=== PATIENT | female | born 1960 | race Caucasian/White ===

== ENCOUNTER 2021-01-20 19:13 | Inpatient (IN) | payer MEDICARE ==
[~2021-01-20 19:13] MED LIST: Iopamidol-370 76% 500 ML 1 ML ONE
[2021-01-20] MEDS ORDERED: Ondansetron ODT 4 MG TAB PO PRN (21:05)
[2021-01-20] MEDS ORDERED: Acetaminophen 325 MG TAB PO PRN (21:05)
[2021-01-20] MEDS ORDERED: hydrALAZINE 20 MG/ML VIAL SLOW IVP PRN (21:05)
[2021-01-20 22:40] LABS: Hemoglobin A1c 6.2 % (4.0-6.0)
[2021-01-21] MEDS ORDERED: HYDROcodone/Acetaminophen 5/325 mg Tablet PO PRN (04:33)
[2021-01-21 05:59] LABS: #Basophils 0.1 thou/uL (0.0-0.2); #Eosinphils 0.2 thou/uL (0.0-0.7); #Lymphocytes 2.1 thou/uL (1.20-3.40); #Monocytes 0.7 thou/uL (0.11-0.59); #Neutrophils 5.2 thou/uL (1.40-6.50); %Basophils 1.3 % (0.0-1.0); %Eosinophils 2.2 % (0.0-10.0); %Lymphocytes 25.4 % (21.0-51.0); %Monocytes 8.5 % (0.0-10.0); %Neutrophils 62.6 % (42.0-75.0); Hemoglobin 14.1 g/dL (12.0-16.0); Mean Corpuscular HGB CONC 34.6 g/dL (32.0-36.0); Mean Corpuscular Hemoglobin 32.2 pg (27.0-31.0); Mean Platelet Volume 6.9 fL (7.4-10.4); Platelet Count 361 thou/uL (130-400); RBC Distribution Width 11.6 % (11.5-14.5); Red Blood Cell (RBC) Count 4.37 mill/uL (4.20-5.40); White Blood Cell (WBC) Count 8.4 thou/uL (4.8-10.8)
[2021-01-21 06:27] LABS: Anion Gap 13 mmol/L (10-20); BUN (Urea Nitrogen) 9 mg/dL (9.8-20.1); Calc. Creatinine Clearance 0 mL/min (70-130); Calcium 9.8 mg/dL (7.8-10.44); Carbon Dioxide 25 mmol/L (23-31); Cardiac Risk 6.1 (Less than 4.5); Chloride 105 mmol/L (98-107); Cholesterol 262 mg/dl (< 200 Desired); Glucose 121 mg/dL (80-115); HDL Cholesterol 43 mg/dL (>60 Neg Risk); LDL Cholesterol, Calculated 180 mg/dL; Potassium 3.7 mmol/L (3.5-5.1); Sodium 139 mmol/L (136-145); Triglycerides 196 mg/dL (Less than 150)
[2021-01-21] MEDS ORDERED: Aspirin Chewable 81 MG TAB ONE (08:46)
[2021-01-21] MEDS ORDERED: Enoxaparin Sodium 40 MG/0.4 ML SYRINGE ONE (08:46)
[2021-01-21] MEDS ORDERED: Lisinopril 10 MG TAB ONE (08:46)
[2021-01-21] MEDS: Aspirin 81 mg Enteric Coated Tablet PO SCH (09:06)
[2021-01-21] MEDS: Enoxaparin Sodium 40 MG/0.4 ML SYRINGE SC SCH (09:07)
[2021-01-21] MEDS: Lisinopril 10 MG TAB PO SCH (09:07)
[2021-01-21] MEDS: Pregabalin 25 MG CAP PO SCH ×3 (09:08→21:25)
[2021-01-21 16:01] VITALS: BMI 28.6
[2021-01-21] MEDS ORDERED: Atorvastatin Calcium 40 MG TAB PO SCH (21:00)
[2021-01-22] MEDS ORDERED: Levothyroxine Sodium 50 MCG TAB PO SCH (06:00)
[2021-01-22] MEDS: Enoxaparin Sodium 40 MG/0.4 ML SYRINGE SC SCH (08:57)
[2021-01-22] MEDS: Aspirin 81 mg Enteric Coated Tablet PO SCH (08:58)
[2021-01-22] MEDS: Lisinopril 10 MG TAB PO SCH (08:58)
[2021-01-22] MEDS: Pregabalin 25 MG CAP PO SCH ×2 (08:59→16:31)
[2021-01-22 15:38] VITALS: BP 126/72; TEMP 97.7
[2021-01-22 19:22] LABS: EliA Thy New Method **** NEW METHOD ****; Thyroid Peroxidase IgG Ab Less than 4.0 IU/mL (<25 Normal)
== END 2021-01-22 18:10 | disposition home or self-care (01) | DRG 66 ==
LOC: ERS 19:13 → ERHOLD 20:56 → 2SE 01-21 15:49 → OBSVTOIN 01-21 16:40
PROVIDERS: ADMIT Family Medicine; ATTEND Family Medicine
DX: I63.40 Cerebral infarction due to embolism of unspecified cerebral artery (principal); R47.01 Aphasia; G62.9 Polyneuropathy, unspecified; I16.0 Hypertensive urgency; R26.2 Difficulty in walking, not elsewhere classified; I10 Essential (primary) hypertension; Z90.49 Acquired absence of other specified parts of digestive tract; Z83.3 Family history of diabetes mellitus; Z82.3 Family history of stroke; Z82.49 Family history of ischemic heart disease and other diseases of the circulatory system; Z87.891 Personal history of nicotine dependence; Z88.1 Allergy status to other antibiotic agents; Z91.048 Other nonmedicinal substance allergy status; Z85.3 Personal history of malignant neoplasm of breast
CPT/HCPCS: 36415; 70496; 70498; 70551; 80048; 80061; 83036; 84439; 84443; 85025; 86376; 93306; 96372; G0378; J1650; Q9967

== ENCOUNTER 2021-02-26 12:22 | Outpatient (CLI) | payer MEDICARE ==
[2021-02-26 13:45] LABS: Anion Gap 14 mmol/L (10-20); BUN (Urea Nitrogen) 13 mg/dL (9.8-20.1); Calc. Creatinine Clearance 0 mL/min (70-130); Calcium 9.5 mg/dL (7.8-10.44); Carbon Dioxide 25 mmol/L (23-31); Chloride 106 mmol/L (98-107); Glucose 98 mg/dL (80-115); Potassium 4.6 mmol/L (3.5-5.1); Sodium 140 mmol/L (136-145)
[2021-02-26 20:45] LABS: SARS-CoV-2 PCR by NAA Not Detected (NotDetected)
== END 2021-02-26 12:23 | disposition home or self-care (01) ==
LOC: LABBT 12:22
PROVIDERS: ATTEND Internal Medicine Cardiovascular Disease
DX: Z01.812 Encounter for preprocedural laboratory examination (principal); I63.9 Cerebral infarction, unspecified; Z20.822 Contact with and (suspected) exposure to COVID-19
CPT/HCPCS: 80048; U0003; U0005

== ENCOUNTER 2021-03-03 05:38 | Day surgery (SDC) | payer MEDICARE ==
[2021-03-02 09:58] VITALS: BMI 28.5
[2021-03-03 07:06] LABS: PTT 26.4 sec (22.9-36.1); Prothrombin Time 13.4 sec (12.0-14.7)
[2021-03-03] MEDS ORDERED: PROPOFOL 20 ML ONE (07:20)
== END 2021-03-03 09:49 | disposition home or self-care (01) ==
LOC: SDC 05:38
PROVIDERS: ATTEND Internal Medicine Cardiovascular Disease
PROC: B24BZZ4 Ultrasonography of Heart with Aorta, Transesophageal (ICD-10-PCS; principal; 2021-03-03)
DX: I63.9 Cerebral infarction, unspecified (principal); I08.1 Rheumatic disorders of both mitral and tricuspid valves; I10 Essential (primary) hypertension; Z79.899 Other long term (current) drug therapy; Z87.891 Personal history of nicotine dependence; Z88.1 Allergy status to other antibiotic agents; Z88.8 Allergy status to other drugs, medicaments and biological substances
CPT/HCPCS: 36415; 85610; 85730; 93312; J2704

== ENCOUNTER 2022-12-20 12:18 | Outpatient (CLI) | payer MEDICARE | END 2022-12-20 12:19 | disposition home or self-care (01) | LOC: BICMAMMO 12:18 | PROVIDERS: ATTEND Family Medicine | DX: Z12.31 Encounter for screening mammogram for malignant neoplasm of breast (principal); Z85.3 Personal history of malignant neoplasm of breast; Z98.890 Other specified postprocedural states | CPT/HCPCS: 77063; 77067 ==

== ENCOUNTER 2024-04-02 12:30 | Outpatient (CLI) | payer MEDICARE | END 2024-04-02 12:31 | disposition home or self-care (01) | LOC: BICMAMMO 12:30 | PROVIDERS: ATTEND Family Medicine | DX: Z12.31 Encounter for screening mammogram for malignant neoplasm of breast (principal); Z85.3 Personal history of malignant neoplasm of breast; Z98.890 Other specified postprocedural states; Z91.89 Other specified personal risk factors, not elsewhere classified | CPT/HCPCS: 77063; 77067 ==